=== PATIENT | male | born 1940 | race African-American/Black ===

== ENCOUNTER 2017-10-13 17:43 | Inpatient (IN) | payer MEDICARE, OTHER ==
[~2017-10-13] VITALS: Ht 172.7 cm; Wt 57.7 kg
[2017-10-13 17:46] VITALS: BP 223/114; PULSE 62; PULSE 64; RESP 15; RESP 18; TEMP 98.2; TEMP 98.5; O2SAT 100
[2017-10-13] MEDS ORDERED: SODIUM CHLOR 0.9% 1000 ML INJ 1,000 ML IV ONE (17:51)
[2017-10-13 17:58] VITALS: BP 211/120; PULSE 63
--- NOTE | 2017-10-13 18:12 | PD ---
HPI Chief Complaint: Neuro Symptoms/ Deficits Time Seen by Provider: 17:51 Travel History International Travel<30 days: No Contact w/Intl Traveler<30days: No Traveled to known affect area: No History of Present Illness HPI 77 y/o male presents with with report of right-sided weakness and facial droop that started about 7 AM this morning. Patient has been off his blood pressure medications for 2 months. He states he is not sure what they were. He denies any other concurrent complaints at this time. He states his weakness is improving. History is limited from patient. COUNT INCLUDES THE [facility] Past Medical History Cardiovascular Problems: Yes (HTN) Diminished Hearing: No Hypertension: Yes Immunizations Current: Yes Tetanus Vaccination: Unknown Influenza Vaccination: No Past Surgical History Abdominal Surgery: Yes (HERNIA ) Social History Alcohol Use: Yes (OCC) Tobacco Use: Yes (1/2 PPD) Substance Use: Yes Allergies-Medications (Allergen,Severity, Reaction): Coded Allergies: No Known Allergies (Unverified , 10/13/17) Reported Meds & Prescriptions Reported Meds & Active Scripts Active No Active Prescriptions or Reported Medications Review of Systems Except as stated in HPI: all other systems reviewed are Neg Physical Exam Narrative GENERAL: 77-year-old male in no apparent distress SKIN: Focused skin assessment warm/dry. HEAD: Atraumatic. Normocephalic. EYES: Pupils equal and round. No scleral icterus. No injection or drainage. ENT: No nasal bleeding or discharge. Mucous membranes pink and moist. NECK: Trachea midline. No JVD. CARDIOVASCULAR: Regular rate and rhythm. No murmur appreciated. RESPIRATORY: No accessory muscle use. Clear to auscultation. Breath sounds equal bilaterally. GASTROINTESTINAL: Abdomen soft, non-tender, nondistended. MUSCULOSKELETAL: No obvious deformities. No clubbing. No cyanosis. No edema. NEUROLOGICAL: Awake and alert. Motor grossly within normal limits. Normal speech. Right-sided facial droop noted, 5 out of 5 in all 4 extremities Data Data Last Documented VS Vital Signs Date Time Temp Pulse Resp B/P (MAP) Pulse Ox O2 Delivery O2 Flow Rate FiO2 10/13/17 18:14 61 19 205/104 (137) 100 10/13/17 17:46 98.5 Room Air Orders Orders Electrocardiogram (10/13/17 ) Activity Bed Rest (10/13/17 ) Prothrombin Time / Inr (Pt) (10/13/17 17:51) Act Partial Throm Time (Ptt) (10/13/17 17:51) Complete Blood Count With Diff (10/13/17 17:51) Fibrinogen (10/13/17 17:51) Creatine Kinase (Cpk) (10/13/17 17:51) Troponin I (10/13/17 17:51) Ua Includes Microscopic (10/13/17 17:51) Drug Screen, Random Urine (10/13/17 17:51) Type And Screen (10/13/17 17:51) Ct Brain W/O Iv Contrast(Rout) (10/13/17 ) Chest, Single Ap (10/13/17 ) Ecg Monitoring (10/13/17 17:51) Nursing Bedside Swallow Assess .ONCE (10/13/17 17:51) Iv Access Insert/Monitor (10/13/17 17:51) NPO (10/13/17 17:51) Oximetry (10/13/17 17:51) Comprehensive Metabolic Panel (10/13/17 17:51) Sodium Chlor 0.9% 1000 Ml Inj (Ns 1000 M (10/13/17 17:51) Hydralazine Inj (Apresoline Inj) (10/13/17 18:15) Labs Laboratory Tests Test 10/13/17 17:50 White Blood Count 7.7 TH/MM3 Red Blood Count 5.61 MIL/MM3 Hemoglobin 12.8 GM/DL Hematocrit 40.4 % Mean Corpuscular Volume 71.9 FL Mean Corpuscular Hemoglobin 22.8 PG Mean Corpuscular Hemoglobin Concent 31.6 % Red Cell Distribution Width 17.4 % Platelet Count 216 TH/MM3 Mean Platelet Volume 8.7 FL Neutrophils (%) (Auto) 63.4 % Lymphocytes (%) (Auto) 28.6 % Monocytes (%) (Auto) 4.8 % Eosinophils (%) (Auto) 2.5 % Basophils (%) (Auto) 0.7 % Neutrophils # (Auto) 4.9 TH/MM3 Lymphocytes # (Auto) 2.2 TH/MM3 Monocytes # (Auto) 0.4 TH/MM3 Eosinophils # (Auto) 0.2 TH/MM3 Basophils # (Auto) 0.1 TH/MM3 CBC Comment DIFF FINAL Differential Comment Prothrombin Time 10.6 SEC Prothromb Time International Ratio 1.0 RATIO Activated Partial Thromboplast Time 21.9 SEC Fibrinogen 249 mg/dL MDM Medical Decision Making Medical Screen Exam Complete: Yes Emergency Medical Condition: Yes Medical Record Reviewed: Yes (Past history confirmed) Differential Diagnosis Hypertensive urgency, bleed, stroke, mass Narrative Course We will check blood work, CT brain and dose with hydralazine given extent of hypertension and monitor Physician Communication Physician Communication dr winter to follow workup and admit Scripts No Active Prescriptions or Reported Meds Radha Krishnan MD Oct 13, 2017 18:12
[2017-10-13 18:14] VITALS: BP 205/104; PULSE 61; RESP 19; O2SAT 100
[2017-10-13] MEDS ORDERED: hydrALAZINE HCL 20 MG/ML VIAL IV PUSH ONE ×2 (18:15→21:15)
--- NOTE | 2017-10-13 18:18 | RADRPT ---
EXAM DATE/TIME: 10/13/2017 18:00 [facility] COMPARISON: No previous studies available for comparison. INDICATIONS : Right sided weakness and facial drooping. Light headed. MEDICAL HISTORY : Current smoker. SURGICAL HISTORY : None. ENCOUNTER: Initial ACUITY: 1 day PAIN SCORE: 0/10 LOCATION: Bilateral chest FINDINGS: A single view of the chest demonstrates the lungs to be symmetrically and mildly hyperaerated without evidence of mass, infiltrate or effusion. The cardiomediastinal contours are unremarkable. Osseous structures are intact. CONCLUSION: The lungs are clear. Arnav Segura MD on October 13, 2017 at 18:16 Board Certified Radiologist. This report was verified electronically.
[2017-10-13 18:40] LABS: AUTOMATED NEUTROPHIL # 4.9 TH/MM3 (1.8-7.7); BASOPHIL # 0.1 TH/MM3 (0-0.2); BASOPHIL % 0.7 % (0.0-2.0); EOSINOPHIL # 0.2 TH/MM3 (0-0.4); EOSINOPHIL % 2.5 % (0.0-4.0); HEMATOCRIT 40.4 % (39.0-51.0); HEMOGLOBIN 12.8 GM/DL (13.0-17.0); LYMPH % 28.6 % (9.0-44.0); LYMPHOCYTE # 2.2 TH/MM3 (1.0-4.8); MEAN CELL VOLUME 71.9 FL (80.0-100.0); MEAN CORPUSCULAR HEMOGLOBIN 22.8 PG (27.0-34.0); MEAN CORPUSCULAR HGB CONC 31.6 % (32.0-36.0); MEAN PLATELET VOLUME 8.7 FL (7.0-11.0); MONO % 4.8 % (0.0-8.0); MONOCYTE # 0.4 TH/MM3 (0-0.9); NEUT % 63.4 % (16.0-70.0); PLATELET COUNT 216 TH/MM3 (150-450); RED BLOOD COUNT 5.61 MIL/MM3 (4.50-5.90); RED CELL DISTRIBUTION WIDTH 17.4 % (11.6-17.2); WHITE BLOOD COUNT 7.7 TH/MM3 (4.0-11.0)
[2017-10-13 18:49] LABS: PROTHROMBIN TIME - PATIENT 10.6 SEC (9.8-11.6)
--- NOTE | 2017-10-13 19:42 | RADRPT ---
EXAM DATE/TIME: 10/13/2017 19:08 [facility] COMPARISON: No previous studies available for comparison. INDICATIONS : Right sided weakness, facial droop, increased blood pressure since this morning. RADIATION DOSE: 56.35 CTDIvol (mGy) MEDICAL HISTORY : Hypertension. SURGICAL HISTORY : None. ENCOUNTER: Initial ACUITY: 1 day PAIN SCALE: 0/10 LOCATION: cranial TECHNIQUE: Multiple contiguous axial images were obtained of the head. Using automated exposure control and adj ustment of the mA and/or kV according to patient size, radiation dose was kept as low as reasonably a chievable to obtain optimal diagnostic quality images. DICOM format image data is available electro nically for review and comparison. FINDINGS: CEREBRUM: The ventricles, sulci and basal cisterns are prominent characteristic of mild central and cortical at rophy. There is also decreased attenuation in the supratentorial white matter.. No evidence of midl ine shift, mass lesion, hemorrhage or acute infarction. No extra-axial fluid collections are seen. POSTERIOR FOSSA: The cerebellum and brainstem are intact. The 4th ventricle is midline. The cerebellopontine angle i s unremarkable. EXTRACRANIAL: The visualized portion of the orbits is intact. SKULL: The calvaria is intact. No evidence of skull fracture. CONCLUSION: 1. No acute findings in the brain. 2. Mild severity central and cortical atrophy. Arnav Segura MD on October 13, 2017 at 19:39 Board Certified Radiologist. This report was verified electronically.
[2017-10-13 20:43] VITALS: BP 189/100; PULSE 65; RESP 18; O2SAT 100
[2017-10-13 20:51] LABS: ALBUMIN 3.2 GM/DL (3.4-5.0); AST (GOT) 14 U/L (15-37); BICARBONATE 22.1 MEQ/L (21.0-32.0); BLOOD UREA NITROGEN 17 MG/DL (7-18); CALCIUM 7.8 MG/DL (8.5-10.1); CHLORIDE 113 MEQ/L (98-107); CREATININE 1.47 MG/DL (0.60-1.30); GLOMERULAR FILTRATION RATE 56 ML/MIN (>89); GLUCOSE,RANDOM 81 MG/DL (74-106); SODIUM (NA) 145 MEQ/L (136-145)
[2017-10-13 20:56] LABS: ALKALINE PHOSPHATASE 61 U/L (45-117); ALT (GPT) 16 U/L (12-78); TOTAL BILIRUBIN ADULT 0.3 MG/DL (0.2-1.0); TOTAL PROTEIN 6.5 GM/DL (6.4-8.2); TROPONIN I LESS THAN 0.02 NG/ML (0.02-0.05)
[2017-10-13] MEDS ORDERED: LABETALOL HCL 100 MG/20 ML VIAL IV PUSH ONE (22:00)
[2017-10-13 22:09] LABS: BILIRUBIN, URINE NEG (NEG); BLOOD, URINE NEG (NEG); GLUCOSE,URINE NEG (NEG); KETONE, URINE NEG (NEG); NITRITE,URINE NEG (NEG); PH, URINE 6.5 (5.0-8.5); URINE COLOR LIGHT-YELLOW (YELLW/STRAW); URINE LEUKOCYTE ESTERASE NEG (NEG)
[2017-10-13] MEDS ORDERED: CLOPIDOGREL 75 MG TAB PO ONE (22:15)
[2017-10-13] MEDS ORDERED: ASPIRIN 81 MG CHEW TAB CHEW ONE (22:15)
--- NOTE | 2017-10-13 22:25 | HHI.HP ---
[facility] Service [facility] Primary Care Physician [facility] Admission Diagnosis CVA Diagnoses: (1) CVA (cerebral vascular accident) Diagnosis: Principal (2) HTN (hypertension) Diagnosis: Principal (3) Cocaine abuse Diagnosis: Principal (4) Renal insufficiency Diagnosis: Principal (5) Tobacco abuse Diagnosis: Principal Travel History International Travel<30 Days: No Contact w/Intl Traveler <30 Da: No Traveled to Known Affected Are: No History of Present Illness This is a 77-year-old male with a PMH of HTN who presents the ER with complaints of right facial droop and addition to right-sided weakness starting approximately 7am this morning. Pt poor historian, unclear why he waited so long to come in. Pt denies RLE weakness however reports pt "dragging his leg". No h/o CVA in the past. On arrival, BP 223/114, HR 64, O2 sat 100% on RA , Afebrile. S/p Hydralazine 10mg IV x2 in ER, BP 150's. CBC essentially unremarkable. Creatinine 1.47, no previous labs for comparison. Reported negative. INR 1.0. UA negative. Drug Screen positive for Cocaine and Marijuana. Upon questioning pt does admit to Cocaine, last use was last evening. States he does not use daily. CXR with no acute findings. CT Head negative. MRI Brain with focal acute white matter infarct posteriorly of left frontal lobe. MRA Head normal. MRA Neck minimal atherosclerotic plaque right carotid bifurcation/proximal ICA. Review of Systems Except as stated in HPI: all other systems reviewed are Neg ROS: 14 point review of systems otherwise negative. Past Family Social History Past Medical History PMH: HTN Past Surgical History PAST SURGICAL HISTORY: Hernia Repair Allergies: Coded Allergies: No Known Allergies (Unverified , 10/13/17) Family History PAST FAMILY HISTORY: Reviewed. No h/o DM or CAD Social History PAST SOCIAL HISTORY: Occasional alcohol. Positive for tobacco. Positive for Cocaine and Marijuana. Physical Exam Vital Signs Vital Signs Date Time Temp Pulse Resp B/P (MAP) Pulse Ox O2 Delivery O2 Flow Rate FiO2 10/13/17 20:43 65 18 189/100 (129) 100 10/13/17 18:14 61 19 205/104 (137) 100 10/13/17 17:58 63 211/120 (150) 10/13/17 17:46 98.5 62 15 223/114 (150) 100 Room Air 10/13/17 17:46 98.2 64 18 223/114 (150) 100 10/13/17 17:46 100 Nasal Cannula Physical Exam PE: GENERAL: Pleasant elderly black male in no acute distress. at bedside. HEENT: PERRLA, EOMI. No scleral icterus or conjunctival pallor. No lid lag. Mild right facial droop. CARDIOVASCULAR: Regular rate and rhythm. No obvious murmurs to auscultation. No chest tenderness to palpation. RESPIRATORY: No obvious rhonchi or wheezing. Clear to auscultation. Breath sounds equal bilaterally. GASTROINTESTINAL: Abdomen soft, non-tender, nondistended. BS normal. MUSCULOSKELETAL: Extremities without clubbing, cyanosis, or edema. No obvious deformities. NEUROLOGICAL: Awake, alert and oriented x4. RUE/RLE 4/5 strength. Moving both upper and lower extremities spontaneously. Laboratory Laboratory Tests Test 10/13/17 17:50 10/13/17 19:55 10/13/17 21:45 White Blood Count 7.7 Red Blood Count 5.61 Hemoglobin 12.8 Hematocrit 40.4 Mean Corpuscular Volume 71.9 Mean Corpuscular Hemoglobin 22.8 Mean Corpuscular Hemoglobin Concent 31.6 Red Cell Distribution Width 17.4 Platelet Count 216 Mean Platelet Volume 8.7 Neutrophils (%) (Auto) 63.4 Lymphocytes (%) (Auto) 28.6 Monocytes (%) (Auto) 4.8 Eosinophils (%) (Auto) 2.5 Basophils (%) (Auto) 0.7 Neutrophils # (Auto) 4.9 Lymphocytes # (Auto) 2.2 Monocytes # (Auto) 0.4 Eosinophils # (Auto) 0.2 Basophils # (Auto) 0.1 CBC Comment DIFF FINAL Differential Comment Prothrombin Time 10.6 Prothromb Time International Ratio 1.0 Activated Partial Thromboplast Time 21.9 Fibrinogen 249 Blood Urea Nitrogen 17 Creatinine 1.47 Random Glucose 81 Total Protein 6.5 Albumin 3.2 Calcium Level 7.8 Alkaline Phosphatase 61 Aspartate Amino Transf (AST/SGOT) 14 Alanine Aminotransferase (ALT/SGPT) 16 Total Bilirubin 0.3 Sodium Level 145 Potassium Level 3.5 Chloride Level 113 Carbon Dioxide Level 22.1 Anion Gap 10 Estimat Glomerular Filtration Rate 56 Total Creatine Kinase 234 Troponin I LESS THAN 0.02 Urine Color LIGHT-YELLOW Urine Turbidity CLEAR Urine pH 6.5 Urine Specific [place] 1.007 Urine Protein NEG Urine Glucose (UA) NEG Urine Ketones NEG Urine Occult Blood NEG Urine Nitrite NEG Urine Bilirubin NEG Urine Urobilinogen LESS THAN 2.0 Urine Leukocyte Esterase NEG Urine RBC 1 Urine Opiates Screen NEG Urine Barbiturates Screen NEG Urine Amphetamines Screen NEG Urine Benzodiazepines Screen NEG Urine Cocaine Screen POS Urine Cannabinoids Screen POS Result Diagram: 10/13/17 1750 10/13/171954 Caprini VTE Risk Assessment Caprini VTE Risk Assessment: Mod/High Risk (score >= 2) Caprini Risk Assessment Model Point Value = 1 Point Value = 2 Point Value = 3 Point Value = 5 Age 41-60 Minor surgery BMI > 25 kg/m2 Swollen legs Varicose veins or History of unexplained or recurrent spontaneous Oral contraceptives or hormone replacement Sepsis (< 1 month) Serious lung disease, including pneumonia (< 1 month) Abnormal pulmonary function Acute myocardial infarction Congestive heart failure (< 1 month) History of inflammatory bowel disease Medical patient at bed rest Age 61-74 Arthroscopic surgery Major open surgery (> 45 min) Laparoscopic surgery (> 45 min) Malignancy Confined to bed (> 72 hours) Immobilizing plaster cast Central venous access Age >= 75 History of VTE Family history of VTE Factor V Leiden Prothrombin [id number] Lupus anticoagulant Anticardiolipin antibodies Elevated serum homocysteine Heparin-induced thrombocytopenia Other congenital or acquired thrombophilia Stroke (< 1 month) Elective arthroplasty Hip, pelvis, or leg fracture Acute spinal cord injury (< 1 month) Prophylaxis Regimen Total Risk Factor Score Risk Level Prophylaxis Regimen 0-1 Low Early ambulation 2 Moderate Order ONE of the following: *Sequential Compression Device (SCD) *Heparin 5000 units SQ BID 3-4 Higher Order ONE of the following medications: *Heparin 5000 units SQ TID *Enoxaparin/Lovenox 40 mg SQ daily (WT < 150 kg, CrCl > 30 mL/min) *Enoxaparin/Lovenox 30 mg SQ daily (WT < 150 kg, CrCl > 10-29 mL/min) *Enoxaparin/Lovenox 30 mg SQ BID (WT < 150 kg, CrCl > 30 mL/min) AND/OR *Sequential Compression Device (SCD) 5 or more Highest Order ONE of the following medications: *Heparin 5000 units SQ TID (Preferred with Epidurals) *Enoxaparin/Lovenox 40 mg SQ daily (WT < 150 kg, CrCl > 30 mL/min) *Enoxaparin/Lovenox 30 mg SQ daily (WT < 150 kg, CrCl > 10-29 mL/min) *Enoxaparin/Lovenox 30 mg SQ BID (WT < 150 kg, CrCl > 30 mL/min) AND *Sequential Compression Device (SCD) Assessment and Plan Problem List: (1) CVA (cerebral vascular accident) ICD Code: I63.9 - Cerebral infarction, unspecified (2) Renal insufficiency ICD Code: N28.9 - Disorder of kidney and ureter, unspecified (3) HTN (hypertension) ICD Code: I10 - Essential (primary) hypertension (4) Cocaine abuse ICD Code: F14.10 - Cocaine abuse, uncomplicated (5) Tobacco abuse ICD Code: Z72.0 - Tobacco use Assessment and Plan A/P: 1. CVA: Acute Right Facial Droop and Right-Sided Weakness starting at 7am, outside TPA window. +persistent symptoms. CT Head negative. MRI Brain w/ focal acute white matter infarct posteriorly of left frontal lobe, images reviewed by me. NPO, IVF, permissive HTN, Neuro Checks. Consult Neurology for further recommendations. PT and OT for eval/tx. ASA, Statin. 2. HTN: Uncontrolled. BP 223/114, HR 94 s/p Hydralazine 10mg IV x2 in ER, will hold further antihypertensives in light of acute CVA. BP meds for Systolic >220. Monitor vitals. 3. Renal Insufficiency: Creatinine 1.47, no previous labs for comparison. UA negative for UTI. IVF for hydration, repeat labs in a.m. 4. Cocaine Abuse: Urine Drug Screen positive for Cocaine, admits to cocaine ingestion, last use last night. Ativan prn 5. Tobacco Abuse: Pt counselled. No NicoDerm to avoid vasoconstriction. Ativan prn. 6. DVT Prophylaxis: Lovenox 7. Social work for d/c planning as needed. 8. Case discussed w/ ER physician at length. Physician Certification 2 Midnight Certification Type: Admission for Inpatient Services Order for Inpatient Services The services are ordered in accordance with Medicare regulations or non- Medicare payer requirements, as applicable. In the case of services not specified as inpatient-only, they are appropriately provided as inpatient services in accordance with the 2-midnight benchmark. Estimated LOS (days): 2 days is the estimated time the patient will need to remain in the hospital, assuming treatment plan goals are met and no additional complications. Post-Hospital Plan: Not yet determined Selina Chavarria MD Oct 13, 2017 22:25
[2017-10-13 22:30] VITALS: O2SAT 99
[2017-10-13] MEDS ORDERED: SODIUM CHLORIDE 0.9% FLUSH 10 ML FLUSH IV FLUSH PRN (22:30)
[2017-10-13] MEDS ORDERED: DEXTROSE 50% IN WATER 50 ML VIAL(D50) IV PUSH PRN (22:30)
[2017-10-13] MEDS ORDERED: GLUCAGON 1 MG/ML VIAL OTHER PRN (22:30)
[2017-10-14] VITALS (12 sets, daily range): BP systolic 146–217; BP diastolic 90–102; PULSE 56–79; RESP 16–19; TEMP 98–99.3; O2SAT 98–100
--- NOTE | 2017-10-14 00:10 | RADRPT ---
EXAM DATE/TIME: 10/13/2017 23:32 [facility] COMPARISON: No previous studies available for comparison. INDICATIONS : Right sided weakness. MEDICAL HISTORY : None. SURGICAL HISTORY : Inguinal hernia repair. ENCOUNTER: Initial ACUITY: 1 day PAIN SCORE: 0/10 LOCATION: cranial Please note a normal MRA of the brain does not entirely exclude the possibility of a small aneurysm, nor the possibility of distal intracranial vessel disease. TECHNIQUE: 3D time of flight MRA was performed. Source images, multiplanar STS MIP, and 3D volume MIP reconstru ctions were reviewed. FINDINGS: There is excellent visualization of the major intracranial arteries out to the second-order branch ve ssels. There is no evidence for aneurysm, vessel truncation or stenosis, and no evidence for vascula r malformation. CONCLUSION: Intracranial arteries are within normal limits. Cristi Rubalcava MD on October 14, 2017 at 0:07 Board Certified Radiologist. This report was verified electronically.
--- NOTE | 2017-10-14 00:16 | RADRPT ---
EXAM DATE/TIME: 10/13/2017 23:32 [facility] COMPARISON: No previous studies available for comparison. INDICATIONS : Right sided weakness. MEDICAL HISTORY : None. SURGICAL HISTORY : Inguinal hernia repair. ENCOUNTER: Initial ACUITY: 1 day PAIN SCORE: 0/10 LOCATION: cranial TECHNIQUE: Multiplanar, multisequence MRI of the brain was performed without contrast. FINDINGS: CEREBRUM: The ventricles are normal for age. No evidence of midline shift, mass lesion, hemorrhage or acute in farction. No extraaxial fluid collections are seen. The pituitary gland and suprasellar cistern are normal in configuration. WHITE MATTER: Moderate to severe, chronic flair signal abnormality seen symmetrically in the white matter of both t hrough hemispheres. POSTERIOR FOSSA: The cerebellum and brainstem are intact. The 4th ventricle is midline. The cerebellopontine angle is unremarkable. The cerebellar tonsils are normal in position. DIFFUSION IMAGIN mm focus of restricted diffusion seen in the white matter posteriorly of the left frontal lobe. EXTRACRANIAL: There is mucoperiosteal thickening throughout the visualized frontal, ethmoid and maxillary air cells . CONCLUSION: 1. Focal acute white matter infarct posteriorly of the left frontal lobe. 2. Atrophy and chronic white matter changes. 3. Chronic sinus disease. Cristi Rubalcava MD on October 14, 2017 at 0:12 Board Certified Radiologist. This report was verified electronically.
[2017-10-14] MEDS ORDERED: GADODIAMIDE PF 287 MG/ML 20 ML VIAL (for RAD MRI) IV PUSH ONE (00:19)
--- NOTE | 2017-10-14 00:22 | RADRPT ---
EXAM DATE/TIME: 10/13/2017 23:32 [facility] COMPARISON: No previous studies available for comparison. INDICATIONS : Right side weakness. CONTRAST: 20 cc Omniscan (gadodiamide) IV MEDICAL HISTORY : None. SURGICAL HISTORY : Inguinal hernia repair. ENCOUNTER: Initial ACUITY: 1 day PAIN SCORE: 0/10 LOCATION: neck Percent stenosis is calculated using the diameter of the stenotic region over the diameter of the nor mal distal internal carotid artery. TECHNIQUE: Bolus infused MRA of the extracranial circulation was performed using a neurovascular coil. Post pro cessing was performed including rotating subvolume maximum intensity projections of each carotid ines ry, rotating full volume maximum intensity projections of both carotid arteries, sagittal and coronal sliding thin slab reformations of each carotid artery, and left oblique sliding thin slab reformatio n through the aortic arch to include the origin of the arch branch vessels. FINDINGS: AORTIC ARCH: There is a three vessel origin of the great vessels from the aorta. No evidence of ostial narrowing. RIGHT CAROTID: The common carotid artery is intact. Very mild short segment narrowing seen of the proximal internal carotid artery related to atherosclerotic plaque.. The internal carotid artery lumen is smooth witho ut stenosis. The external carotid artery is intact. LEFT CAROTID: The common carotid artery is intact. The carotid bulb has a normal configuration without ulceration or narrowing. The internal carotid artery lumen is smooth without stenosis. The external carotid ar joseph is intact. VERTEBRALS: The vertebral arteries have a symmetric diameter. No stenotic lesions are seen. CONCLUSION: Minimal atherosclerotic plaque right carotid bifurcation/proximal ICA. Otherwise normal study. There is no hemodynamically significant narrowing Cristi Rubalcava MD on October 14, 2017 at 0:19 Board Certified Radiologist. This report was verified electronically.
[2017-10-14] MEDS ORDERED: LORazepam 2 MG/ML VIAL IV PUSH PRN (01:30)
[2017-10-14] MEDS: SODIUM CHLOR 0.9% 1000 ML INJ 1,000 ML IV SCH ×2 (01:45→16:45)
[2017-10-14 06:35] LABS: CHOLESTEROL 150 MG/DL (120-200); TRIGLYCERIDES 92 MG/DL (42-150)
[2017-10-14 06:38] LABS: CHOLESTEROL/ HDL RATIO 2.24 RATIO; HDL CHOLESTEROL 66.8 MG/DL (40.0-60.0); LDL CHOLESTEROL 65 MG/DL (0-99)
--- NOTE | 2017-10-14 07:53 | HHI.PR ---
Subjective Remarks f/u; CVA in no acute distress. has some weakness of the right upper extremity. denies pain. Objective Vitals Vital Signs Date Time Temp Pulse Resp B/P (MAP) Pulse Ox O2 Delivery O2 Flow Rate FiO2 10/14/17 04:35 98.4 64 19 185/94 (124) 99 10/14/17 04:00 58 10/14/17 02:30 59 10/14/17 01:15 98.0 64 19 176/100 (125) 100 10/13/17 22:30 99 10/13/17 20:43 65 18 189/100 (129) 100 10/13/17 18:14 61 19 205/104 (137) 100 10/13/17 17:58 63 211/120 (150) 10/13/17 17:46 98.5 62 15 223/114 (150) 100 Room Air 10/13/17 17:46 98.2 64 18 223/114 (150) 100 10/13/17 17:46 100 Nasal Cannula Result Diagram: 10/13/17174910/13/171954 Imaging Last Impressions Neck Magnetic Resonance Angiography 10/13/17 0000 Signed Impressions: Service Date/Time: Friday, October 13, 2017 23:32 - CONCLUSION: Minimal atherosclerotic plaque right carotid bifurcation/proximal ICA. Otherwise normal study. There is no hemodynamically significant narrowing Cristi Rubalcava MD Head Magnetic Resonance Angiography 10/13/17 0000 Signed Impressions: Service Date/Time: Friday, October 13, 2017 23:32 - CONCLUSION: Intracranial arteries are within normal limits. Cristi Rubalcava MD Head CT 10/13/17 0000 Signed Impressions: Service Date/Time: Friday, October 13, 2017 19:08 - CONCLUSION: 1. No acute findings in the brain. 2. Mild severity central and cortical atrophy. Arnav Segura MD Chest X-Ray 10/13/17 0000 Signed Impressions: Service Date/Time: Friday, October 13, 2017 18:00 - CONCLUSION: The lungs are clear. Arnav Segura MD Brain MRI 10/13/17 0000 Signed Impressions: Service Date/Time: Friday, October 13, 2017 23:32 - CONCLUSION: 1. Focal acute white matter infarct posteriorly of the left frontal lobe. 2. Atrophy and chronic white matter changes. 3. Chronic sinus disease. Cristi Rubalcava MD Objective Remarks GENERAL: This is a well-nourished, well-developed patient, in no apparent distress. CARDIOVASCULAR: Regular rate and regular rhythm without murmurs, gallops, or rubs. RESPIRATORY: Clear to auscultation. Breath sounds equal bilaterally. No wheezes , rales, or rhonchi. GASTROINTESTINAL: Abdomen soft, non-tender, nondistended. Normal, active bowel sounds MUSCULOSKELETAL: Extremities without clubbing, cyanosis, or edema. NEURO: Alert & Oriented x4 to person, place, time, situation. Moves all ext x4 Medications and IVs Inpatient Medications Aspirin (Aspirin Chew) 81 mg DAILY PO ; Start 10/14/17 at 09:00 Clopidogrel Bisulfate (Plavix) 75 mg ONCE ONCE PO Last administered on at 21:30; Start 10/13/17 at 22:15; Stop 10/13/17 at 22:16; Status DC Dextrose (D50w (Vial) Inj) 50 ml UNSCH PRN IV PUSH HYPOGLYCEMIA-SEE COMMENTS; Start 10/13/17 at 22:30 Enalaprilat (Vasotec Inj) 1.25 mg Q4H PRN IV PUSH For SBP > 220 or DBP > 120; Start 10/13/17 at 22:30 Enoxaparin Sodium (Lovenox Inj) 40 mg Q24H SQ ; Start 10/15/17 at 09:00 Glucagon (Glucagon Inj) 1 mg UNSCH PRN OTHER HYPOGLYCEMIA-SEE COMMENTS; Start 10/13/17 at 22:30 Hydralazine HCl (Apresoline Inj) 10 mg ONCE ONCE IV PUSH Last administered on 10/13/17at 21:15; Start 10/13/17 at 21:15; Stop 10/13/17 at 21:16; Status DC Insulin Aspart (NovoLOG SUPPLEMENTAL SCALE) 1 ACHS SQ ; Start 10/14/17 at 08:00 Labetalol HCl (Trandate Inj) 10 mg ONCE ONCE IV PUSH ; Start 10/13/17 at 22:00; Stop 10/13/17 at 22:01; Status DC Lorazepam (Ativan Inj) 1 mg Q3H PRN IV PUSH WITHDRAWAL; Start 10/14/17 at 01:30 Pravastatin Sodium (Pravachol) 40 mg HS PO ; Start 10/14/17 at 21:00 Sodium Chloride 1,000 ml @ 70 mls/hr [id number] IV Last administered on at 01:45; Start 10/13/17 at 22:22 Sodium Chloride (NS Flush) 2 ml UNSCH PRN IV FLUSH FLUSH AFTER USING IV ACCESS ; Start 10/13/17 at 22:30 A/P Problem List: (1) CVA (cerebral vascular accident) ICD Code: I63.9 - Cerebral infarction, unspecified (2) Renal insufficiency ICD Code: N28.9 - Disorder of kidney and ureter, unspecified (3) HTN (hypertension) ICD Code: I10 - Essential (primary) hypertension (4) Cocaine abuse ICD Code: F14.10 - Cocaine abuse, uncomplicated (5) Tobacco abuse ICD Code: Z72.0 - Tobacco use Assessment and Plan A/P 1. CVA: Acute Right Facial Droop and Right-Sided Weakness starting at 7am, outside TPA window. +persistent symptoms. CT Head negative. MRI Brain w/ focal acute white matter infarct posteriorly of left frontal lobe. MRA brain with no acute abnormality and MRA neck with no significant stenosis. will check echo- neurology and PT consulted- will consult ST- keep NPO for now and continue with IV fluid. continue aspirin and statin. 2. HTN: Uncontrolled. will hold further antihypertensives in light of acute CVA. BP meds for Systolic >220. Monitor vitals. 3. Renal Insufficiency: Creatinine 1.47, no previous labs for comparison. UA negative for UTI. IVF for hydration, repeat labs in a.m. 4. Cocaine Abuse: Urine Drug Screen positive for Cocaine, admits to cocaine ingestion. Ativan prn 5. Tobacco Abuse: Pt counselled. No NicoDerm to avoid vasoconstriction. Ativan prn. 6. DVT Prophylaxis: Lovenox Discharge Planning awaiting neurology/ PT/ST evaluation. Osvaldo Luna MD Oct 14, 2017 07:53
[2017-10-14] MEDS: INSULIN ASPART SUPPLEMENTAL SCALE SQ SCH ×4 (08:00→20:15)
[2017-10-14] MEDS: SODIUM CHLORIDE 0.9% FLUSH 10 ML FLUSH IV FLUSH SCH ×2 (09:00→20:11)
[2017-10-14] MEDS ORDERED: ASPIRIN 81 MG CHEW TAB PO SCH (09:00)
[2017-10-14 12:29] LABS: HEMOGLOBIN A1C 6.2 % (4.3-6.0)
[2017-10-14 17:26] LABS: C-REACTIVE PROTEIN 0.81 MG/DL (0.00-0.30)
[2017-10-14 17:51] LABS: FOLATE 13.3 NG/ML (3.1-17.5)
[2017-10-14] MEDS: ENALAPRILAT 1.25 MG/ML VIAL IV PUSH PRN (18:34)
[2017-10-14] MEDS: PRAVASTATIN SOD 40 MG TAB PO SCH (20:11)
[2017-10-15] VITALS (9 sets, daily range): BP systolic 123–200; BP diastolic 78–109; PULSE 53–79; RESP 18; TEMP 97–98.6; O2SAT 97–100
--- NOTE | 2017-10-15 00:15 | EKG ---
Date Performed: 10/13/2017 Time Performed: 17:51:15 PTAGE: 77 years EKG: SINUS BRADYCARDIA WITH SINUS ARRHYTHMIA POSSIBLE RIGHT ATRIAL ENLARGEMENT LEFT ATRIAL ENLAR GEMENT MARKED LEFT AXIS DEVIATION INFERIOR MYOCARDIAL INFARCTION ABNORMAL ECG NO PREVIOUS TRACING DOCTOR: Lobito Cárdenas Interpretating Date/Time 10/15/2017 00:13:56
[2017-10-15] MEDS: SODIUM CHLOR 0.9% 1000 ML INJ 1,000 ML IV SCH ×2 (05:57→18:41)
[2017-10-15 07:55] LABS: BICARBONATE 24.3 MEQ/L (21.0-32.0); CALCIUM 8.7 MG/DL (8.5-10.1); CREATININE 1.66 MG/DL (0.60-1.30)
[2017-10-15] MEDS: INSULIN ASPART SUPPLEMENTAL SCALE SQ SCH ×4 (08:00→20:37)
[2017-10-15] MEDS: ENOXAPARIN SODIUM 40 MG/0.4 ML SYRINGE SQ SCH (08:27)
[2017-10-15] MEDS: ASPIRIN 325 MG TAB PO SCH (08:27)
--- NOTE | 2017-10-15 08:55 | HHI.PR ---
Subjective Remarks in no acute distress. still with some weakness of the right upper extremity. no other complaints. Objective Vitals Vital Signs Date Time Temp Pulse Resp B/P (MAP) Pulse Ox O2 Delivery O2 Flow Rate FiO2 10/15/17 08:00 98.5 56 18 168/85 (112) 100 10/15/17 04:00 97.0 59 18 182/103 (129) 98 177/89 (118) 10/15/17 00:00 97.3 79 18 136/78 (97) 97 10/14/17 23:00 79 10/14/17 21:23 98 21.00 10/14/17 20:00 99.3 59 18 146/90 (108) 99 10/14/17 17:12 72 10/14/17 16:00 98.4 69 18 217/102 (140) 98 10/14/17 12:48 98.9 67 17 200/102 (134) 100 10/14/17 12:00 63 I/O 10/14/17 10/14/17 10/14/17 10/15/17 10/15/17 10/15/17 07:00 15:00 23:00 07:00 15:00 23:00 Intake Total 1704 ml Output Total 650 ml Balance 1054 ml Intake Oral 720 ml IV Total 984 ml Output Urine Total 650 ml # Voids 5 Result Diagram: 10/13/17 1750 10/15/17 0626 Imaging Last Impressions Neck Magnetic Resonance Angiography 10/13/17 0000 Signed Impressions: Service Date/Time: Friday, October 13, 2017 23:32 - CONCLUSION: Minimal atherosclerotic plaque right carotid bifurcation/proximal ICA. Otherwise normal study. There is no hemodynamically significant narrowing Cristi Rubalcava MD Head Magnetic Resonance Angiography 10/13/17 0000 Signed Impressions: Service Date/Time: Friday, October 13, 2017 23:32 - CONCLUSION: Intracranial arteries are within normal limits. Cristi Rubalcava MD Head CT 10/13/17 0000 Signed Impressions: Service Date/Time: Friday, October 13, 2017 19:08 - CONCLUSION: 1. No acute findings in the brain. 2. Mild severity central and cortical atrophy. Arnav Segura MD Chest X-Ray 10/13/17 0000 Signed Impressions: Service Date/Time: Friday, October 13, 2017 18:00 - CONCLUSION: The lungs are clear. Arnav Segura MD Brain MRI 10/13/17 0000 Signed Impressions: Service Date/Time: Friday, October 13, 2017 23:32 - CONCLUSION: 1. Focal acute white matter infarct posteriorly of the left frontal lobe. 2. Atrophy and chronic white matter changes. 3. Chronic sinus disease. Cristi Rubalcava MD Objective Remarks GENERAL: This is a well-nourished, well-developed patient, in no apparent distress. CARDIOVASCULAR: Regular rate and regular rhythm without murmurs, gallops, or rubs. RESPIRATORY: Clear to auscultation. Breath sounds equal bilaterally. No wheezes , rales, or rhonchi. GASTROINTESTINAL: Abdomen soft, non-tender, nondistended. Normal, active bowel sounds MUSCULOSKELETAL: Extremities without clubbing, cyanosis, or edema. NEURO: Alert & Oriented x4 to person, place, time, situation. Moves all ext x4 Medications and IVs Inpatient Medications Aspirin (Aspirin Chew) 81 mg DAILY PO Last administered on 10/14/17at 08:45; Start 10/14/17 at 09:00; Stop 10/14/17 at 15:55; Status DC Aspirin (Aspirin) 325 mg DAILY PO ; Start 10/15/17 at 09:00 Clopidogrel Bisulfate (Plavix) 75 mg ONCE ONCE PO Last administered on at 21:30; Start 10/13/17 at 22:15; Stop 10/13/17 at 22:16; Status DC Dextrose (D50w (Vial) Inj) 50 ml UNSCH PRN IV PUSH HYPOGLYCEMIA-SEE COMMENTS; Start 10/13/17 at 22:30 Enalaprilat (Vasotec Inj) 1.25 mg Q4H PRN IV PUSH For SBP > 220 or DBP > 120 Last administered on 10/14/17at 18:34; Start 10/13/17 at 22:30 Enoxaparin Sodium (Lovenox Inj) 40 mg Q24H SQ ; Start 10/15/17 at 09:00 Glucagon (Glucagon Inj) 1 mg UNSCH PRN OTHER HYPOGLYCEMIA-SEE COMMENTS; Start 10/13/17 at 22:30 Hydralazine HCl (Apresoline Inj) 10 mg ONCE ONCE IV PUSH Last administered on 10/13/17at 21:15; Start 10/13/17 at 21:15; Stop 10/13/17 at 21:16; Status DC Insulin Aspart (NovoLOG SUPPLEMENTAL SCALE) 1 ACHS SQ ; Start 10/14/17 at 08:00 Labetalol HCl (Trandate Inj) 10 mg ONCE ONCE IV PUSH ; Start 10/13/17 at 22:00; Stop 10/13/17 at 22:01; Status DC Lorazepam (Ativan Inj) 1 mg Q3H PRN IV PUSH WITHDRAWAL; Start 10/14/17 at 01:30 Pravastatin Sodium (Pravachol) 40 mg HS PO Last administered on 10/14/17at 20:11 ; Start 10/14/17 at 21:00 Sodium Chloride 1,000 ml @ 70 mls/hr [id number] IV Last administered on at 05:57; Start 10/13/17 at 22:22 Sodium Chloride (NS Flush) 2 ml UNSCH PRN IV FLUSH FLUSH AFTER USING IV ACCESS ; Start 10/13/17 at 22:30 A/P Problem List: (1) CVA (cerebral vascular accident) ICD Code: I63.9 - Cerebral infarction, unspecified (2) Renal insufficiency ICD Code: N28.9 - Disorder of kidney and ureter, unspecified (3) HTN (hypertension) ICD Code: I10 - Essential (primary) hypertension (4) Cocaine abuse ICD Code: F14.10 - Cocaine abuse, uncomplicated (5) Tobacco abuse ICD Code: Z72.0 - Tobacco use Assessment and Plan A/P 1. CVA: Acute Right Facial Droop and Right-Sided Weakness starting at 7am, outside TPA window. +persistent symptoms. CT Head negative. MRI Brain w/ focal acute white matter infarct posteriorly of left frontal lobe. MRA brain with no acute abnormality and MRA neck with no significant stenosis. echo and holter pending. neurology and PT/ST consulted- continue aspirin and statin. 2. HTN: Uncontrolled. will hold further antihypertensives in light of acute CVA. BP meds for Systolic >220. Monitor vitals. will start on scheduled antihypertensives within the next 24 hrs. 3. Renal Insufficiency: likely chronic- will monitor. 4. Cocaine Abuse: Urine Drug Screen positive for Cocaine, admits to cocaine ingestion. Ativan prn 5. Tobacco Abuse: Pt counselled. No NicoDerm to avoid vasoconstriction. Ativan prn. 6. DVT Prophylaxis: Lovenox Discharge Planning case management for rehab. dc planning within the next 24-48 hrs- pending the work-up and clinical course. Osvaldo Luna MD Oct 15, 2017 08:54
[2017-10-15] MEDS: SODIUM CHLORIDE 0.9% FLUSH 10 ML FLUSH IV FLUSH SCH ×2 (09:00→20:25)
--- NOTE | 2017-10-15 09:03 | HHI.PR ---
Subjective Remarks no new spells sr Objective Vital Signs Date Time Temp Pulse Resp B/P (MAP) Pulse Ox O2 Delivery O2 Flow Rate FiO2 10/15/17 08:00 98.5 56 18 168/85 (112) 100 10/15/17 04:00 97.0 59 18 182/103 (129) 98 177/89 (118) 10/15/17 00:00 97.3 79 18 136/78 (97) 97 10/14/17 23:00 79 10/14/17 21:23 98 21.00 10/14/17 20:00 99.3 59 18 146/90 (108) 99 10/14/17 17:12 72 10/14/17 16:00 98.4 69 18 217/102 (140) 98 10/14/17 12:48 98.9 67 17 200/102 (134) 100 10/14/17 12:00 63 I/O 10/14/17 10/14/17 10/14/17 10/15/17 10/15/17 10/15/17 07:00 15:00 23:00 07:00 15:00 23:00 Intake Total 1704 ml Output Total 650 ml Balance 1054 ml Intake Oral 720 ml IV Total 984 ml Output Urine Total 650 ml # Voids 5 Result Diagram: 10/13/17 1750 10/15/17 0626 Objective Remarks awake vff face sym slow fist rue and some hand weak tricep rue 5/5 rle ip 5/5 speech clear Assessment and Plan Assessment and Plan imp left likely lacune mrax2 nl sr if echo neg and holter done ok to dc ? rehab if PT feels needs it for unsteady gait asa and bp control ok dc cocaine mvi and b12 shot Geo Kennedy MD Oct 15, 2017 09:03
[2017-10-15] MEDS: MULTIVITAMIN TAB PO SCH (09:50)
[2017-10-15] MEDS: CYANOCOBALAMIN 1000 MCG/ML VIAL SQ SCH (09:50)
[2017-10-15] MEDS ORDERED: ASA325 PO (10:54)
[2017-10-15] MEDS ORDERED: CYAN1TAB24 PO ×2 (10:54→10:58)
[2017-10-15] MEDS ORDERED: AMLO5 PO (10:54)
[2017-10-15] MEDS ORDERED: PRAV40TA PO (10:54)
--- NOTE | 2017-10-15 10:56 | HHI.DS ---
Discharge Summary Admission Date Oct 13, 2017 at 22:22 Discharge Date: Oct 16, 2017 Admitting Diagnosis CVA (1) CVA (cerebral vascular accident) ICD Code: I63.9 - Cerebral infarction, unspecified Diagnosis: Principal (2) Renal insufficiency ICD Code: N28.9 - Disorder of kidney and ureter, unspecified Diagnosis: Secondary (3) HTN (hypertension) ICD Code: I10 - Essential (primary) hypertension Diagnosis: Principal (4) Cocaine abuse ICD Code: F14.10 - Cocaine abuse, uncomplicated Diagnosis: Secondary (5) Tobacco abuse ICD Code: Z72.0 - Tobacco use Diagnosis: Secondary Procedures norvasc Brief History - From Admission This is a 77-year-old male with a PMH of HTN who presents the ER with complaints of right facial droop and addition to right-sided weakness starting approximately 7am this morning. Pt poor historian, unclear why he waited so long to come in. Pt denies RLE weakness however reports pt "dragging his leg". No h/o CVA in the past. On arrival, BP 223/114, HR 64, O2 sat 100% on RA , Afebrile. S/p Hydralazine 10mg IV x2 in ER, BP 150's. CBC essentially unremarkable. Creatinine 1.47, no previous labs for comparison. Reported negative. INR 1.0. UA negative. Drug Screen positive for Cocaine and Marijuana. Upon questioning pt does admit to Cocaine, last use was last evening. States he does not use daily. CXR with no acute findings. CT Head negative. MRI Brain with focal acute white matter infarct posteriorly of left frontal lobe. MRA Head normal. MRA Neck minimal atherosclerotic plaque right carotid bifurcation/proximal ICA. CBC/BMP: 10/13/17 1750 10/15/17 0626 Significant Findings Laboratory Tests Test 10/13/17 17:50 10/13/17 19:55 10/13/17 21:45 10/14/17 05:46 Hemoglobin 12.8 GM/DL (13.0-17.0) Mean Corpuscular Volume 71.9 FL (80.0-100.0) Mean Corpuscular Hemoglobin 22.8 PG (27.0-34.0) Mean Corpuscular Hemoglobin Concent 31.6 % (32.0-36.0) Red Cell Distribution Width 17.4 % (11.6-17.2) Activated Partial Thromboplast Time 21.9 SEC (24.3-30.1) Creatinine 1.47 MG/DL (0.60-1.30) Albumin 3.2 GM/DL (3.4-5.0) Calcium Level 7.8 MG/DL (8.5-10.1) Aspartate Amino Transf (AST/SGOT) 14 U/L (15-37) Chloride Level 113 MEQ/L (98-107) Estimat Glomerular Filtration Rate 56 ML/MIN (>89) Troponin I LESS THAN 0.02 NG/ML Urine Cocaine Screen POS (NEG) Urine Cannabinoids Screen POS (NEG) Hemoglobin A1c 6.2 % (4.3-6.0) C-Reactive Protein 0.81 MG/DL (0.00-0.30) HDL Cholesterol 66.8 MG/DL (40.0-60.0) Test 10/15/17 06:26 Creatinine 1.66 MG/DL (0.60-1.30) Chloride Level 110 MEQ/L (98-107) Estimat Glomerular Filtration Rate 49 ML/MIN (>89) Imaging Last Impressions Neck Magnetic Resonance Angiography 10/13/17 Signed Impressions: Service Date/Time: Friday, October 13, 2017 23:32 - CONCLUSION: Minimal atherosclerotic plaque right carotid bifurcation/proximal ICA. Otherwise normal study. There is no hemodynamically significant narrowing Cristi Rubalcava MD Head Magnetic Resonance Angiography 10/13/17 Signed Impressions: Service Date/Time: Friday, October 13, 2017 23:32 - CONCLUSION: Intracranial arteries are within normal limits. Cristi Rubalcava MD Head CT 10/13/17 0000 Signed Impressions: Service Date/Time: Friday, October 13, 2017 19:08 - CONCLUSION: 1. No acute findings in the brain. 2. Mild severity central and cortical atrophy. Arnav Segura MD Chest X-Ray 10/13/17 Signed Impressions: Service Date/Time: Friday, October 13, 2017 18:00 - CONCLUSION: The lungs are clear. Arnav Segura MD Brain MRI 10/13/17 0000 Signed Impressions: Service Date/Time: Friday, October 13, 2017 23:32 - CONCLUSION: 1. Focal acute white matter infarct posteriorly of the left frontal lobe. 2. Atrophy and chronic white matter changes. 3. Chronic sinus disease. Cristi Rubalcava MD PE at Discharge GENERAL: This is a well-nourished, well-developed patient, in no apparent distress. CARDIOVASCULAR: Regular rate and regular rhythm without murmurs, gallops, or rubs. RESPIRATORY: Clear to auscultation. Breath sounds equal bilaterally. No wheezes , rales, or rhonchi. GASTROINTESTINAL: Abdomen soft, non-tender, nondistended. Normal, active bowel sounds MUSCULOSKELETAL: Extremities without clubbing, cyanosis, or edema. NEURO: Alert & Oriented x4 to person, place, time, situation. Moves all ext x4 Hospital Course 1. CVA: Acute Right Facial Droop and Right-Sided Weakness starting at 7am, outside TPA window. +persistent symptoms. CT Head negative. MRI Brain w/ focal acute white matter infarct posteriorly of left frontal lobe. MRA brain with no acute abnormality and MRA neck with no significant stenosis. neurology and PT/ST consulted- continue aspirin and statin. 2. HTN: Uncontrolled. start on norvasc- f/u as outpatient. 3. Renal Insufficiency: likely chronic- f/u as outpatient. 4. Cocaine Abuse: Urine Drug Screen positive for Cocaine, admits to cocaine ingestion. Pt Condition on Discharge: Fair Discharge Disposition: Discharge to SNF Discharge Time: > 30 minutes Discharge Instructions DIET: Follow Instructions for: Heart Healthy Diet Activities you can perform: Regular-No Restrictions Osvaldo Luna MD Oct 15, 2017 10:56
[2017-10-15] MEDS: amLODIPine BESYLATE 5 MG TAB PO SCH (11:57)
--- NOTE | 2017-10-15 16:23 | ECHRPT ---
Indication: CVA/TIA CONCLUSIONS The left ventricular systolic function is hyperdynamic with an estimated ejection fraction in the ra nge of 65- 70%. Normal left ventricular size. Wall thickness is normal. No regional wall motion abnormalities are present. Trace mitral valve regurgitation. BP: 168 / 85 HR: 112 Rhythm: Sinus MEASUREMENTS (Male / Female) Normal Values Technical Quality:Good 2D ECHO LV Diastolic Diameter PLAX 3.6 cm 4.2 - 5.9 / 3.9 - 5.3 cm LV Systolic Diameter PLAX 2.4 cm IVS Diastolic Thickness 1.0 cm 0.6 - 1.0 / 0.6 - 0.9 cm LVPW Diastolic Thickness 1.0 cm 0.6 - 1.0 / 0.6 - 0.9 cm LV Relative Wall Thickness 0.6 LVOT Diameter 1.5 cm LV Ejection Fraction MOD 4C 61.0 % LV Cardiac Index MOD 4C 1777.0 cm/minm LV Ejection Fraction 4C AL 65.3 % LV Cardiac Index 4C AL 1998.8 cm/minm M-MODE Aortic Root Diameter MM 2.0 cm AV Cusp Separation MM 1.7 cm DOPPLER AV Peak Velocity 143.0 cm/s AV Peak Gradient 8.2 mmHg LVOT Peak Velocity 117.0 cm/s LVOT Peak Gradient 5.5 mmHg AV Area Cont Eq pk 1.4 cm MV Area PHT 7.1 cm LV E' Lateral Velocity 6.7 cm/s LV E' Septal Velocity 6.9 cm/s PV Peak Velocity 80.1 cm/s PV Peak Gradient 2.6 mmHg FINDINGS LEFT VENTRICLE The left ventricular systolic function is hyperdynamic with an estimated ejection fraction in the ra nge of 65- 70%. Normal left ventricular size. Wall thickness is normal. No regional wall motion abnormalities are present. RIGHT VENTRICLE Normal right ventricular size and systolic function. LEFT ATRIUM The left atrial size is normal. RIGHT ATRIUM The right atrial size is normal. ATRIAL SEPTUM Normal atrial septal thickness without atrial level shunting by limited color doppler interrogation. AORTA The aortic root and proximal ascending aorta are normal in size on limited imaging. MITRAL VALVE Trace mitral valve regurgitation. AORTIC VALVE Trileaflet aortic valve. No aortic valve stenosis or regurgitation. PULMONARY VALVE The pulmonary valve is not well visualized. VESSELS The inferior vena cava is normal in size. PERICARDIUM No pericardial effusion. Diego Allen MD (Electronically Signed) Final Date:15 October 2017 16:22
[2017-10-15] MEDS: PRAVASTATIN SOD 40 MG TAB PO SCH (20:25)
[2017-10-16] VITALS (9 sets, daily range): BP systolic 126–211; BP diastolic 87–104; PULSE 58–85; RESP 16–20; TEMP 97.1–98.2; O2SAT 62–99
--- NOTE | 2017-10-16 07:13 | HHI.PR ---
Subjective Remarks sr Objective Vital Signs Date Time Temp Pulse Resp B/P (MAP) Pulse Ox O2 Delivery O2 Flow Rate FiO2 10/16/17 00:00 97.1 58 18 126/87 (100) 97 10/15/17 23:00 53 10/15/17 22:16 99 10/15/17 20:00 98.5 53 18 123/97 (106) 97 10/15/17 16:00 98.4 67 18 178/89 (118) 99 10/15/17 16:00 54 10/15/17 12:00 69 10/15/17 12:00 98.6 61 18 200/109 (139) 97 10/15/17 08:50 57 10/15/17 08:00 98.5 56 18 168/85 (112) 100 I/O 10/15/17 10/15/17 10/15/17 10/16/17 10/16/17 10/16/17 07:00 15:00 23:00 07:00 15:00 23:00 # Voids 5 Result Diagram: 10/13/17 1750 10/15/17 0626 Objective Remarks awake moves rue ok hand about 4-/5 Assessment and Plan Assessment and Plan imp left likely lacune [id number] nl sr echo neg and holter pend ok to dc ? rehab if PT feels needs it for unsteady gait asa and bp control ok dc cocaine mvi and b12 shot ok to get bp to 120/70 will signoff fu Geo Buckner MD Oct 16, 2017 07:13
[2017-10-16] MEDS: amLODIPine BESYLATE 5 MG TAB PO SCH (08:57)
[2017-10-16] MEDS: MULTIVITAMIN TAB PO SCH (08:57)
[2017-10-16] MEDS: ENOXAPARIN SODIUM 40 MG/0.4 ML SYRINGE SQ SCH (08:58)
[2017-10-16] MEDS: CYANOCOBALAMIN 1000 MCG/ML VIAL SQ SCH (08:58)
[2017-10-16] MEDS: ASPIRIN 325 MG TAB PO SCH (08:58)
[2017-10-16] MEDS: SODIUM CHLORIDE 0.9% FLUSH 10 ML FLUSH IV FLUSH SCH ×2 (09:00→20:06)
--- NOTE | 2017-10-16 09:20 | HHI.PR ---
Subjective Remarks in no acute distress. still with some right upper extremity weakness. BP trend note. no new complaints. Objective Vitals Vital Signs Date Time Temp Pulse Resp B/P (MAP) Pulse Ox O2 Delivery O2 Flow Rate FiO2 10/16/17 08:30 97.7 61 18 200/100 (133) 99 10/16/17 00:00 97.1 58 18 126/87 (100) 97 10/15/17 23:00 53 10/15/17 22:16 99 10/15/17 20:00 98.5 53 18 123/97 (106) 97 10/15/17 16:00 98.4 67 18 178/89 (118) 99 10/15/17 16:00 54 10/15/17 12:00 69 10/15/17 12:00 98.6 61 18 200/109 (139) 97 I/O 10/15/17 10/15/17 10/15/17 10/16/17 10/16/17 10/16/17 07:00 15:00 23:00 07:00 15:00 23:00 # Voids 5 Result Diagram: 10/13/17 1750 10/15/17 0626 Imaging Last Impressions Neck Magnetic Resonance Angiography 10/13/17 0000 Signed Impressions: Service Date/Time: Friday, October 13, 2017 23:32 - CONCLUSION: Minimal atherosclerotic plaque right carotid bifurcation/proximal ICA. Otherwise normal study. There is no hemodynamically significant narrowing Cristi Rubalcava MD Head Magnetic Resonance Angiography 10/13/17 0000 Signed Impressions: Service Date/Time: Friday, October 13, 2017 23:32 - CONCLUSION: Intracranial arteries are within normal limits. Cristi Rubalcava MD Head CT 10/13/17 0000 Signed Impressions: Service Date/Time: Friday, October 13, 2017 19:08 - CONCLUSION: 1. No acute findings in the brain. 2. Mild severity central and cortical atrophy. Arnav Segura MD Chest X-Ray 10/13/17 0000 Signed Impressions: Service Date/Time: Friday, October 13, 2017 18:00 - CONCLUSION: The lungs are clear. Arnav Segura MD Brain MRI 10/13/17 0000 Signed Impressions: Service Date/Time: Friday, October 13, 2017 23:32 - CONCLUSION: 1. Focal acute white matter infarct posteriorly of the left frontal lobe. 2. Atrophy and chronic white matter changes. 3. Chronic sinus disease. Cristi Rubalcava MD Objective Remarks GENERAL: This is a well-nourished, well-developed patient, in no apparent distress. CARDIOVASCULAR: Regular rate and regular rhythm without murmurs, gallops, or rubs. RESPIRATORY: Clear to auscultation. Breath sounds equal bilaterally. No wheezes , rales, or rhonchi. GASTROINTESTINAL: Abdomen soft, non-tender, nondistended. Normal, active bowel sounds MUSCULOSKELETAL: Extremities without clubbing, cyanosis, or edema. NEURO: Alert & Oriented x4 to person, place, time, situation. Moves all ext x4 Procedures none. Medications and IVs Inpatient Medications Amlodipine Besylate (Norvasc) 5 mg DAILY PO Last administered on 10/16/17 08: 57; Start 10/15/17 at 11:00 Aspirin (Aspirin Chew) 81 mg DAILY PO Last administered on 10/14/17 08:45; Start 10/14/17 at 09:00; Stop 10/14/17 at 15:55; Status DC Aspirin (Aspirin) 325 mg DAILY PO Last administered on 10/16/17 08:58; Start 10/15/17 at 09:00 Clopidogrel Bisulfate (Plavix) 75 mg ONCE ONCE PO Last administered on 21:30; Start 10/13/17 at 22:15; Stop 10/13/17 at 22:16; Status DC Cyanocobalamin (Vitamin B12 Inj) 1,000 mcg DAILY SQ Last administered on 08:58; Start 10/15/17 at 09:00; Stop 10/18/17 at 08:59 Dextrose (D50w (Vial) Inj) 50 ml UNSCH PRN IV PUSH HYPOGLYCEMIA-SEE COMMENTS; Start 10/13/17 at 22:30 Enalaprilat (Vasotec Inj) 1.25 mg Q4H PRN IV PUSH For SBP > 220 or DBP > 120 Last administered on 10/14/17at 18:34; Start 10/13/17 at 22:30 Enoxaparin Sodium (Lovenox Inj) 40 mg Q24H SQ Last administered on 10/16/17 08 :58; Start 10/15/17 at 09:00 Glucagon (Glucagon Inj) 1 mg UNSCH PRN OTHER HYPOGLYCEMIA-SEE COMMENTS; Start 10/13/17 at 22:30 Hydralazine HCl (Apresoline Inj) 10 mg ONCE ONCE IV PUSH Last administered on 10/13/17at 21:15; Start 10/13/17 at 21:15; Stop 10/13/17 at 21:16; Status DC Insulin Aspart (NovoLOG SUPPLEMENTAL SCALE) 1 ACHS SQ ; Start 10/14/17 at 08:00 Labetalol HCl (Trandate Inj) 10 mg ONCE ONCE IV PUSH ; Start 10/13/17 at 22:00; Stop 10/13/17 at 22:01; Status DC Lorazepam (Ativan Inj) 1 mg Q3H PRN IV PUSH WITHDRAWAL; Start 10/14/17 at 01:30 Multivitamins (Theragran) 1 tab DAILY PO Last administered on 10/16/17at 08:57; Start 10/15/17 at 09:00 Pravastatin Sodium (Pravachol) 40 mg HS PO Last administered on 10/15/17at 20:25 ; Start 10/14/17 at 21:00 Sodium Chloride 1,000 ml @ 70 mls/hr [id number] IV Last administered on at 18:41; Start 10/13/17 at 22:22 Sodium Chloride (NS Flush) 2 ml UNSCH PRN IV FLUSH FLUSH AFTER USING IV ACCESS ; Start 10/13/17 at 22:30 A/P Problem List: (1) CVA (cerebral vascular accident) ICD Code: I63.9 - Cerebral infarction, unspecified (2) Renal insufficiency ICD Code: N28.9 - Disorder of kidney and ureter, unspecified (3) HTN (hypertension) ICD Code: I10 - Essential (primary) hypertension (4) Cocaine abuse ICD Code: F14.10 - Cocaine abuse, uncomplicated (5) Tobacco abuse ICD Code: Z72.0 - Tobacco use Assessment and Plan A/P 1. CVA: Acute Right Facial Droop and Right-Sided Weakness starting at 7am, outside TPA window. +persistent symptoms. CT Head negative. MRI Brain w/ focal acute white matter infarct posteriorly of left frontal lobe. MRA brain with no acute abnormality and MRA neck with no significant stenosis. echo with EF70%- holter pending. neurology and PT/ST consulted- continue aspirin and statin. 2. HTN: Uncontrolled.will increase norvasc and continue to monitor. 3. Renal Insufficiency: likely chronic- will monitor. 4. Cocaine Abuse: Urine Drug Screen positive for Cocaine, admits to cocaine ingestion. Ativan prn 5. Tobacco Abuse: Pt counselled. No NicoDerm to avoid vasoconstriction. Ativan prn. 6. DVT Prophylaxis: Lovenox Discharge Planning dc to rehab in am if BP better controlled. Osvaldo Luna MD Oct 16, 2017 09:20
[2017-10-16] MEDS ORDERED: AMLO10TA2 PO (09:25)
[2017-10-16] MEDS ORDERED: amLODIPine BESYLATE 5 MG TAB PO ONE (09:30)
--- NOTE | 2017-10-16 14:25 | MB ---
cc: Geo Kennedy MD DATE OF CONSULT: 10/14/2017 HISTORY OF PRESENT ILLNESS: He is a 77-year-old right handed male with a history of hypertension, hypercholesterolemia. He was on blood pressure medication and 81 mg of aspirin a day but has been out of his medication for the last 2 months. He has otherwise been healthy. Yesterday morning he woke up and had difficulty moving his right arm. He was able to move the arm but he grabbed a bucket and then dropped the bucket. He was walking around and his friend noticed that he was walking differently. He was kind of leaning to the one side and then when she looked at him she noticed that he was talking out of the side of his mouth and that his face was not symmetric. Then his daughter came home and his friend pointed this out to the daughter who then called the ambulance. He has had a headache on the left side since yesterday. He denied any numbness, tingling, light-headedness, dizziness, chest pain, or palpitations with this. When he went to bed 2 nights ago on 10/12, he was completely normal with no symptoms of right sided weakness. REVIEW OF SYSTEMS: He denies diabetes, myocardial infarctions, bypass, stent, angioplasty, atrial fibrillation, Coumadin. He does not that he had possibly a cyst on his kidney but thinks that his kidney function has been okay. He otherwise denies hepatic disease, pulmonary disease, thyroid disease, lupus, ulcer, cancer, seizure or stroke. No other major medical problems. SOCIAL HISTORY: He is a smoker. He occasionally drinks. He does do illicit drugs at times, usually marijuana but sometime cocaine he states. He is visiting from [place]. He normally with a friend up in [place] but he is visiting his daughter now. FAMILY HISTORY: Positive for cancer, negative for seizure or stroke. MEDICATIONS AT HOME: He thinks he takes a blood pressure medication but otherwise is unsure of what medications he takes. They think HCTZ. MEDICATIONS IN THE HOSPITAL: He is on Lovenox, pravastatin, aspirin, insulin, Ativan, Vasotec. He did get an aspirin and Plavix. Hydralazine. PHYSICAL EXAMINATION: VITAL SIGNS: On admission blood pressure 185/94, recent blood pressure 200/102, afebrile, pulse of 67, respiratory rate 17, 100% O2 sat on room air. HEART: Regular rate and rhythm. I do not detect a murmur or carotid bruit. NEUROLOGIC: Visual moses are full although he does mention he has had cataract removed in both eyes but he is able to see my entire face when covering each eye. Extraocular movements intact, no nystagmus. Face is not symmetric. He does have still some right facial droop when asked to smile. The tongue is midline. He does not have a drift. Strength in the left upper and left lower extremities is 5/5. Strength in the right upper extremity is 4+ to 5-/5, right lower extremity is 5-/5. DTRs are 1+ throughout. Toes were downgoing bilaterally. There is no ____ clonus. Tone is seen to be normal throughout. Pinprick and vibratory sense is intact throughout. He is not ataxic on finger to nose but he is slower with movement in the right arm. He is able to walk, he just walks a little bit cautiously. I do not see him staggering or leaning over to one side, however. His speech is a little bit slurred but he is not aphasic. He is alert and oriented at this time. LABORATORY DATA: CBC is normal. Coags: PTT was slightly low at 20.9, otherwise normal. UA was negative. CMP: Creatinine was 1.47, GFR 56. Hemoglobin A1c 6.2. Troponin was negative. Albumin 3.2. LDL cholesterol 65. Urine toxicology positive for cocaine and cannabis. IMAGING: MRI of the brain shows focal acute white matter infarct posteriorly of the left frontal lobe, some atrophy and chronic white matter changes and chronic sinus disease. Chest x-ray was read as negative. CT of the head was read as no acute findings, mild severity central and cortical atrophy. MRA of the head was read as normal. MRA of the neck showed minimal atherosclerotic plaque right carotid bifurcation proximal internal carotid artery, otherwise normal study. IMPRESSION: Acute infarct in the left frontal lobe posteriorly. He can go on 325 mg of aspirin a day for a month and then transition to 81 mg of aspirin. He was advised to quit smoking and stop any illicit drug use. Depending on how he is walking and everything, he may need some rehabilitation. Will check some additional blood work and echocardiogram and Holter monitor. Dictated by NATALIA Agee Geo Kennedy MD DJM/rt , 03:55 PM , 12:17 AM
[2017-10-16 14:47] LABS: ANA SCREEN POS (NEG)
[2017-10-16] MEDS: INSULIN ASPART SUPPLEMENTAL SCALE SQ SCH (20:04)
[2017-10-16] MEDS: PRAVASTATIN SOD 40 MG TAB PO SCH (20:06)
--- NOTE | 2017-10-16 20:51 | HM ---
Date Performed: 10/14/2017 Time Performed: 16:42:00 HOOKUP DATE: 10/14/17 04:42:00 PM Sat ANALYSIS START TIME: 10/14/2017 4:47:00 PM ANALYSIS END TIME: 10/15/2017 4:50:59 PM PATIENT AGE: 77 PATIENT HEIGHT PATIENT WEIGHT DRUG LIST PATIENT DIAGNOSIS: CVA COCAINE ABUSE TEST NARRATIVE: The patient's average heart rate was 61 BPM. No episodes of tachycardia wer e noted. Heart rates less than 50 BPM were noted 9% of the time. No pauses exceeding 2.0 seconds were noted. 66 ventricular ectopics, which represented < 1% of the total beat count, were noted. The highest ventricular ectopic frequency occurred from 08:00 AM to 09:00 AM Sun. During this time 9 VE(s) occurred. Ventricular ectopics were observed as 66 isolated beat(s) only. No couplets or r uns were noted. 9281 supraventricular ectopics, which represented 11% of the total beat count, we re noted. The highest supraventricular ectopic frequency occurred from 08:00 AM to 09:00 AM Sun. Du ring this time 634 SVE(s) occurred. No episodes of ST depression (defined as -1.0 mm or more) wer e noted in channel 1. No episodes of ST depression (defined as -1.0 mm or more) were noted in channe l 2. No episodes of ST depression (defined as -1.0 mm or more) were noted in channel 3. NO DIARY JESSICA NTAINED TEST INTERPRETATION: Patient undergoes a holter monitor to see if there is any relationship of h is neurologic symptoms with an underlying rhythm disturbance. Patient is in Sinus rhythm throughout the monitoring session. No diary is provided. Patient has occasional PACs and PVCs. There are several breif 3-5 beat episodes of nonsustained supraventricular tachycardia. All of these have organized atrial activity and there is no evidence of atrial fibrillation/flutter. No signficant kenna y arrhythmias are noted. Conclusions: Normal sinus rhythm with PACs and occassional breif episodes of nonsustained supraventricular tachycardia Rare PVCs No complex ventricular ectopy No significant tac hy or shiloh arrhythmias No diary provided Signed by : Jes Cedillo
[2017-10-16 22:04] LABS: ALB/GLOB RATIO (SPE) 1.48 (1.39-2.23)
[2017-10-17] VITALS (14 sets, daily range): BP systolic 161–189; BP diastolic 93–112; PULSE 59–72; RESP 18–20; TEMP 98.1–98.6; O2SAT 99–100
[2017-10-17] MEDS: ENALAPRILAT 1.25 MG/ML VIAL IV PUSH PRN ×2 (00:59→20:04)
[2017-10-17] MEDS: INSULIN ASPART SUPPLEMENTAL SCALE SQ SCH ×2 (08:00→12:00)
[2017-10-17] MEDS: SODIUM CHLORIDE 0.9% FLUSH 10 ML FLUSH IV FLUSH SCH ×2 (08:29→20:05)
[2017-10-17] MEDS: ASPIRIN 325 MG TAB PO SCH (08:29)
[2017-10-17] MEDS: CYANOCOBALAMIN 1000 MCG/ML VIAL SQ SCH (08:30)
[2017-10-17] MEDS: MULTIVITAMIN TAB PO SCH (08:30)
[2017-10-17] MEDS: ENOXAPARIN SODIUM 40 MG/0.4 ML SYRINGE SQ SCH ×2 (08:30→08:46)
[2017-10-17] MEDS: amLODIPine BESYLATE 5 MG TAB PO SCH (08:36)
--- NOTE | 2017-10-17 09:22 | HHI.PR ---
Subjective Remarks in no acute distress. denies pain. still with some right upper extremity weakness. no new complaints. BP trend noted. Objective Vitals Vital Signs Date Time Temp Pulse Resp B/P (MAP) Pulse Ox O2 Delivery O2 Flow Rate FiO2 10/17/17 08:23 98.4 68 18 161/97 (118) 100 10/17/17 06:37 59 10/17/17 05:28 98.2 62 20 167/97 (120) 100 10/17/17 04:24 60 10/17/17 02:16 174/95 (121) 10/17/17 00:59 189/104 (132) 10/17/17 00:49 98.1 69 20 188/103 (131) 100 10/16/17 23:57 77 10/16/17 22:42 155/90 (111) 62 10/16/17 21:58 98.2 69 20 211/104 (139) 97 10/16/17 17:14 97 21 10/16/17 16:00 62 10/16/17 16:00 97.8 61 18 168/99 (122) 97 10/16/17 12:00 97.8 60 16 145/103 (117) 97 I/O 10/16/17 10/16/17 10/16/17 10/17/17 10/17/17 10/17/17 07:00 15:00 23:00 07:00 15:00 23:00 Intake Total 240 ml Balance 240 ml Intake Oral 240 ml # Voids 4 1 # Bowel Movements 0 Result Diagram: 10/13/17 1750 10/15/17 0626 Imaging Last Impressions Neck Magnetic Resonance Angiography 10/13/17 0000 Signed Impressions: Service Date/Time: Friday, October 13, 2017 23:32 - CONCLUSION: Minimal atherosclerotic plaque right carotid bifurcation/proximal ICA. Otherwise normal study. There is no hemodynamically significant narrowing Cristi Rubalcava MD Head Magnetic Resonance Angiography 10/13/17 0000 Signed Impressions: Service Date/Time: Friday, October 13, 2017 23:32 - CONCLUSION: Intracranial arteries are within normal limits. Cristi Rubalcava MD Head CT 10/13/17 0000 Signed Impressions: Service Date/Time: Friday, October 13, 2017 19:08 - CONCLUSION: 1. No acute findings in the brain. 2. Mild severity central and cortical atrophy. Arnav Segura MD Chest X-Ray 10/13/17 0000 Signed Impressions: Service Date/Time: Friday, October 13, 2017 18:00 - CONCLUSION: The lungs are clear. Arnav Segura MD Brain MRI 10/13/17 0000 Signed Impressions: Service Date/Time: Friday, October 13, 2017 23:32 - CONCLUSION: 1. Focal acute white matter infarct posteriorly of the left frontal lobe. 2. Atrophy and chronic white matter changes. 3. Chronic sinus disease. Cristi Rubalcava MD Objective Remarks GENERAL: This is a well-nourished, well-developed patient, in no apparent distress. CARDIOVASCULAR: Regular rate and regular rhythm without murmurs, gallops, or rubs. RESPIRATORY: Clear to auscultation. Breath sounds equal bilaterally. No wheezes , rales, or rhonchi. GASTROINTESTINAL: Abdomen soft, non-tender, nondistended. Normal, active bowel sounds MUSCULOSKELETAL: Extremities without clubbing, cyanosis, or edema. NEURO: Alert & Oriented x4 to person, place, time, situation. Moves all ext x4 Procedures none. Medications and IVs Inpatient Medications Amlodipine Besylate (Norvasc) 5 mg ONCE ONCE PO Last administered on at 11:50; Start 10/16/17 at 09:30; Stop 10/16/17 at 09:31; Status DC Aspirin (Aspirin Chew) 81 mg DAILY PO Last administered on 10/14/17at 08:45; Start 10/14/17 at 09:00; Stop 10/14/17 at 15:55; Status DC Aspirin (Aspirin) 325 mg DAILY PO Last administered on 10/17/17at 08:29; Start 10/15/17 at 09:00 Clopidogrel Bisulfate (Plavix) 75 mg ONCE ONCE PO Last administered on at 21:30; Start 10/13/17 at 22:15; Stop 10/13/17 at 22:16; Status DC Cyanocobalamin (Vitamin B12 Inj) 1,000 mcg DAILY SQ Last administered on at 08:30; Start 10/15/17 at 09:00; Stop 10/18/17 at 08:59 Dextrose (D50w (Vial) Inj) 50 ml UNSCH PRN IV PUSH HYPOGLYCEMIA-SEE COMMENTS; Start 10/13/17 at 22:30 Enalaprilat (Vasotec Inj) 1.25 mg Q4H PRN IV PUSH SBP> 180 OR DBP > 100 Last administered on 10/17/17at 00:59; Start 10/13/17 at 22:30 Enoxaparin Sodium (Lovenox Inj) 40 mg Q24H SQ Last administered on 10/16/17at 08 :58; Start 10/15/17 at 09:00 Glucagon (Glucagon Inj) 1 mg UNSCH PRN OTHER HYPOGLYCEMIA-SEE COMMENTS; Start 10/13/17 at 22:30 Hydralazine HCl (Apresoline Inj) 10 mg ONCE ONCE IV PUSH Last administered on 10/13/17at 21:15; Start 10/13/17 at 21:15; Stop 10/13/17 at 21:16; Status DC Insulin Aspart (NovoLOG SUPPLEMENTAL SCALE) 1 ACHS SQ ; Start 10/14/17 at 08:00 Labetalol HCl (Trandate Inj) 10 mg ONCE ONCE IV PUSH ; Start 10/13/17 at 22:00; Stop 10/13/17 at 22:01; Status DC Lorazepam (Ativan Inj) 1 mg Q3H PRN IV PUSH WITHDRAWAL; Start 10/14/17 at 01:30 Multivitamins (Theragran) 1 tab DAILY PO Last administered on 10/17/17at 08:30; Start 10/15/17 at 09:00 Pravastatin Sodium (Pravachol) 40 mg HS PO Last administered on 10/16/17at 20:06 ; Start 10/14/17 at 21:00 Sodium Chloride 1,000 ml @ 70 mls/hr [id number] IV Last administered on at 18:41; Start 10/13/17 at 22:22; Stop 10/16/17 at 11:35; Status DC Sodium Chloride (NS Flush) 2 ml UNSCH PRN IV FLUSH FLUSH AFTER USING IV ACCESS ; Start 10/13/17 at 22:30 A/P Problem List: (1) CVA (cerebral vascular accident) ICD Code: I63.9 - Cerebral infarction, unspecified (2) Renal insufficiency ICD Code: N28.9 - Disorder of kidney and ureter, unspecified (3) HTN (hypertension) ICD Code: I10 - Essential (primary) hypertension (4) Cocaine abuse ICD Code: F14.10 - Cocaine abuse, uncomplicated (5) Tobacco abuse ICD Code: Z72.0 - Tobacco use Assessment and Plan A/P 1. CVA: outside TPA window. +persistent symptoms. CT Head negative. MRI Brain w/ focal acute white matter infarct posteriorly of left frontal lobe. MRA brain with no acute abnormality and MRA neck with no significant stenosis. echo with EF70%- holter with sinus rhythm and no [place] ot tachy arrhythmias. neurology and PT/ST consulted- continue aspirin and statin. cleared by neurology. 2. HTN: overall better controlled. continue Norvasc and add HCTZ. 3. Renal Insufficiency: likely chronic- will monitor. 4. Cocaine Abuse: Urine Drug Screen positive for Cocaine, admits to cocaine ingestion. Ativan prn 5. Tobacco Abuse: Pt counselled. No NicoDerm to avoid vasoconstriction. Ativan prn. 6. DVT Prophylaxis: Lovenox Discharge Planning d/w the case management. no benefits for rehab or HHC. will dc home this afternoon if BP stable. see med list. d/w the patient. f/u; pcp and neurology. time spent 35 min. Osvaldo Luna MD Oct 17, 2017 09:22
[2017-10-17] MEDS ORDERED: HYDR25TA5 PO (09:24)
[2017-10-17] MEDS: HYDROCHLOROTHIAZIDE 12.5 MG CAP PO SCH (10:52)
[2017-10-17] MEDS ORDERED: NIFEdipine 30 MG SUSTAINED RELEASE TAB PO ONE (18:00)
[2017-10-17] MEDS: PRAVASTATIN SOD 40 MG TAB PO SCH (20:04)
[2017-10-17] MEDS ORDERED: cloNIDine HCL 0.1 MG TAB PO ONE (21:45)
[2017-10-18] VITALS: BP 140/82; PULSE 72; RESP 18; TEMP 98.7; O2SAT 100
[2017-10-18 02:08] VITALS: PULSE 70
[2017-10-18 04:00] VITALS: BP 125/76; PULSE 67; RESP 18; TEMP 98.5; O2SAT 100
[2017-10-18 04:25] VITALS: PULSE 68
[2017-10-18 08:00] VITALS: BP 136/67; PULSE 62; PULSE 69; RESP 18; TEMP 97.9; O2SAT 100
--- NOTE | 2017-10-18 08:32 | HHI.PR ---
Subjective Remarks in no acute distress. no new complaints. BP has much improved. Objective Vitals Vital Signs Date Time Temp Pulse Resp B/P (MAP) Pulse Ox O2 Delivery O2 Flow Rate FiO2 10/18/17 04:25 68 10/18/17 04:00 98.5 67 18 125/76 (92) 100 10/18/17 02:08 70 10/18/17 00:00 98.7 72 18 140/82 (101) 100 10/17/17 23:59 72 10/17/17 21:27 70 181/99 (126) 99 10/17/17 20:00 98.1 68 18 181/112 (135) 100 10/17/17 18:07 63 10/17/17 16:12 98.6 60 18 162/95 (117) 100 10/17/17 12:30 98.6 70 18 179/99 (125) 100 10/17/17 11:00 98.6 65 18 175/93 (120) 100 I/O 10/17/17 10/17/17 10/17/17 10/18/17 10/18/17 10/18/17 07:00 15:00 23:00 07:00 15:00 23:00 Intake Total 480 ml Balance 480 ml Intake Oral 480 ml # Voids 1 7 1 # Bowel Movements 0 0 Result Diagram: 10/15/17 0626 Imaging Last Impressions Neck Magnetic Resonance Angiography 10/13/17 0000 Signed Impressions: Service Date/Time: Friday, October 13, 2017 23:32 - CONCLUSION: Minimal atherosclerotic plaque right carotid bifurcation/proximal ICA. Otherwise normal study. There is no hemodynamically significant narrowing Cristi Rubalcava MD Head Magnetic Resonance Angiography 10/13/17 0000 Signed Impressions: Service Date/Time: Friday, October 13, 2017 23:32 - CONCLUSION: Intracranial arteries are within normal limits. Cristi Rubalcava MD Head CT 10/13/17 0000 Signed Impressions: Service Date/Time: Friday, October 13, 2017 19:08 - CONCLUSION: 1. No acute findings in the brain. 2. Mild severity central and cortical atrophy. Arnav Segura MD Chest X-Ray 10/13/17 0000 Signed Impressions: Service Date/Time: Friday, October 13, 2017 18:00 - CONCLUSION: The lungs are clear. Arnav Segura MD Brain MRI 10/13/17 0000 Signed Impressions: Service Date/Time: Friday, October 13, 2017 23:32 - CONCLUSION: 1. Focal acute white matter infarct posteriorly of the left frontal lobe. 2. Atrophy and chronic white matter changes. 3. Chronic sinus disease. Cristi Rubalcava MD Objective Remarks GENERAL: This is a well-nourished, well-developed patient, in no apparent distress. CARDIOVASCULAR: Regular rate and regular rhythm without murmurs, gallops, or rubs. RESPIRATORY: Clear to auscultation. Breath sounds equal bilaterally. No wheezes , rales, or rhonchi. GASTROINTESTINAL: Abdomen soft, non-tender, nondistended. Normal, active bowel sounds MUSCULOSKELETAL: Extremities without clubbing, cyanosis, or edema. NEURO: Alert & Oriented x4 to person, place, time, situation. Moves all ext x4 Procedures none. Medications and IVs Inpatient Medications Amlodipine Besylate (Norvasc) 5 mg ONCE ONCE PO Last administered on at 11:50; Start 10/16/17 at 09:30; Stop 10/16/17 at 09:31; Status DC Aspirin (Aspirin Chew) 81 mg DAILY PO Last administered on 10/14/17at 08:45; Start 10/14/17 at 09:00; Stop 10/14/17 at 15:55; Status DC Aspirin (Aspirin) 325 mg DAILY PO Last administered on 10/17/17at 08:29; Start 10/15/17 at 09:00 Clonidine (Catapres) 0.1 mg ONCE ONCE PO Last administered on 10/17/17at 21:47 ; Start 10/17/17 at 21:45; Stop 10/17/17 at 21:46; Status DC Clopidogrel Bisulfate (Plavix) 75 mg ONCE ONCE PO Last administered on 21:30; Start 10/13/17 at 22:15; Stop 10/13/17 at 22:16; Status DC Cyanocobalamin (Vitamin B12 Inj) 1,000 mcg DAILY SQ Last administered on at 08:30; Start 10/15/17 at 09:00; Stop 10/18/17 at 08:59 Dextrose (D50w (Vial) Inj) 50 ml UNSCH PRN IV PUSH HYPOGLYCEMIA-SEE COMMENTS; Start 10/13/17 at 22:30; Stop 10/17/17 at 13:03; Status DC Enalaprilat (Vasotec Inj) 1.25 mg Q4H PRN IV PUSH SBP> 180 OR DBP > 100 Last administered on 10/17/17at 20:04; Start 10/13/17 at 22:30 Enoxaparin Sodium (Lovenox Inj) 40 mg Q24H SQ Last administered on 10/16/17at 08 :58; Start 10/15/17 at 09:00; Status Future Hold Glucagon (Glucagon Inj) 1 mg UNSCH PRN OTHER HYPOGLYCEMIA-SEE COMMENTS; Start 10/13/17 at 22:30; Stop 10/17/17 at 13:03; Status DC Hydralazine HCl (Apresoline Inj) 10 mg ONCE ONCE IV PUSH Last administered on 10/13/17at 21:15; Start 10/13/17 at 21:15; Stop 10/13/17 at 21:16; Status DC Hydrochlorothiazide (Microzide) 12.5 mg DAILY PO Last administered on at 10:52; Start 10/17/17 at 10:00 Insulin Aspart (NovoLOG SUPPLEMENTAL SCALE) 1 ACHS SQ ; Start 10/14/17 at 08:00 ; Stop 10/17/17 at 13:03; Status DC Labetalol HCl (Trandate Inj) 10 mg ONCE ONCE IV PUSH ; Start 10/13/17 at 22:00; Stop 10/13/17 at 22:01; Status DC Lorazepam (Ativan Inj) 1 mg Q3H PRN IV PUSH WITHDRAWAL; Start 10/14/17 at 01:30 Multivitamins (Theragran) 1 tab DAILY PO Last administered on 10/17/17at 08:30; Start 10/15/17 at 09:00 Nifedipine (Procardia Xl) 30 mg NOW ONCE PO Last administered on 10/17/17at 18: 01; Start 10/17/17 at 18:00; Stop 10/17/17 at 18:01; Status DC Pravastatin Sodium (Pravachol) 40 mg HS PO Last administered on 10/17/17at 20:04 ; Start 10/14/17 at 21:00 Sodium Chloride 1,000 ml @ 70 mls/hr [id number] IV Last administered on at 18:41; Start 10/13/17 at 22:22; Stop 10/16/17 at 11:35; Status DC Sodium Chloride (NS Flush) 2 ml UNSCH PRN IV FLUSH FLUSH AFTER USING IV ACCESS ; Start 10/13/17 at 22:30 A/P Problem List: (1) CVA (cerebral vascular accident) ICD Code: I63.9 - Cerebral infarction, unspecified (2) Renal insufficiency ICD Code: N28.9 - Disorder of kidney and ureter, unspecified (3) HTN (hypertension) ICD Code: I10 - Essential (primary) hypertension (4) Cocaine abuse ICD Code: F14.10 - Cocaine abuse, uncomplicated (5) Tobacco abuse ICD Code: Z72.0 - Tobacco use Assessment and Plan A/P 1. CVA: outside TPA window. +persistent symptoms. CT Head negative. MRI Brain w/ focal acute white matter infarct posteriorly of left frontal lobe. MRA brain with no acute abnormality and MRA neck with no significant stenosis. echo with EF70%- holter with sinus rhythm and no [place] ot tachy arrhythmias. neurology and PT/ST consulted- continue aspirin and statin. cleared by neurology. 2. HTN: overall better controlled. will switch to Procardia- f/u as outpatient. 3. Renal Insufficiency: likely chronic- will monitor. 4. Cocaine Abuse: Urine Drug Screen positive for Cocaine, admits to cocaine ingestion. Ativan prn 5. Tobacco Abuse: Pt counselled. No NicoDerm to avoid vasoconstriction. Ativan prn. 6. DVT Prophylaxis: Lovenox Discharge Planning d/w the case management. no benefits for rehab or HHC. will dc home today. see med list. d/w the patient. f/u; pcp and neurology. time spent 35 min. Osvaldo Luna MD Oct 18, 2017 08:32
[2017-10-18] MEDS ORDERED: NIFE1TAB85 PO (08:34)
[2017-10-18] MEDS ORDERED: HYDR12.57 PO (08:36)
[2017-10-18] MEDS ORDERED: MULT1TAB46 PO (08:41)
[2017-10-18] MEDS: amLODIPine BESYLATE 5 MG TAB PO SCH (08:51)
[2017-10-18] MEDS: HYDROCHLOROTHIAZIDE 12.5 MG CAP PO SCH (08:51)
[2017-10-18] MEDS: ASPIRIN 325 MG TAB PO SCH (08:51)
[2017-10-18] MEDS: MULTIVITAMIN TAB PO SCH (08:51)
[2017-10-18] MEDS: SODIUM CHLORIDE 0.9% FLUSH 10 ML FLUSH IV FLUSH SCH (08:52)
[2017-10-18] MEDS ORDERED: WALKER/ADULT/FO1 MIS (09:11)
[2017-10-18] MEDS ORDERED: WHEEMIS3 (09:12)
--- NOTE | 2017-10-18 11:34 | HHI.FF ---
Face to Face Verification Diagnosis: (1) CVA (cerebral vascular accident) Physical Therapy Order: Evaluate and Treat Occupational Therapy Order: Evaluate and Treat Home Health Nursing Order: Medical education Signs/symptoms of disease process Medication education-adverse effect Nursing assessment with vital signs I have seen patient Howie Odom on 10/18/17. My clinical findings support the need for the requested home health care services because: Ltd mobility - disease progression I certify that my clinical findings support that this patient is homebound because: Unsteady gait/balance Osvaldo Luna MD Oct 18, 2017 11:34
[2017-10-18 12:00] VITALS: BP 136/82; PULSE 74; RESP 18; TEMP 97.8; O2SAT 99
[2017-10-18 20:17] LABS: ANA PATTERN CENTROMERE
[2017-10-19 13:19] LABS: METHYLMALONIC ACID 0.28 nmol/mL (<=0.40)
== END 2017-10-18 16:35 | disposition home or self-care (01) | DRG 65 ==
LOC: NEPC 17:43 → NEDA 22:22 → N05A 10-14 00:56
PROVIDERS: ADMIT Family Medicine; ATTEND Family Medicine
DX: I63.9 Cerebral infarction, unspecified (principal); G81.91 Hemiplegia, unspecified affecting right dominant side; I10 Essential (primary) hypertension; R29.810 Facial weakness; N28.9 Disorder of kidney and ureter, unspecified; E78.00 Pure hypercholesterolemia, unspecified; I67.89 Other cerebrovascular disease; F12.90 Cannabis use, unspecified, uncomplicated; F14.10 Cocaine abuse, uncomplicated; F17.200 Nicotine dependence, unspecified, uncomplicated; Z91.14 Patient's other noncompliance with medication regimen
CPT/HCPCS: 70450; 70544; 70548; 70551; 71045; 80048; 80053; 80061; 80307; 81001; 82550; 82607; 82746; 82948; 83036; 83921; 84165; 84207; 84425; 84484; 85025; 85384; 85610; 85652; 85730; 86038; 86039; 86140; 86850; 86900; 86901; 93005; 93225; 93226; 93306; 96361; 96374; 96375; A9579; J0360; J1650; J3420; J7030